=== PATIENT | male | born 1980 | race Caucasian/White ===

== ENCOUNTER 2018-09-15 15:33 | Emergency (ER) | payer SELFPAY ==
[2018-09-15] MEDS ORDERED: Benzocaine 20% Topical Spray UD MUCMEM ONE (16:39)
[2018-09-15] MEDS ORDERED: Acetaminophen/Codeine 300-30 MG Tab PO ONE (16:39)
[2018-09-15] MEDS ORDERED: Lidocaine 2% Viscous Solution 15 ML Cup PO ONE (16:39)
--- NOTE | 2018-09-15 16:43 | EDM.PDOC ---
ED HPI GENERAL MEDICAL PROBLEM - General Chief Complaint: ENT Problem Stated Complaint: TOOTH ACHE Time Seen by Provider: 09/15/18 16:33 - History of Present Illness INITIAL COMMENTS - FREE TEXT/NARRATIVE: HISTORY AND PHYSICAL: History of present illness: The patient is a 37-year-old male who presents with recurrent pain to the left side of his upper mouth where he has 2 problems from tooth 11 2 tooth 13. He has been seen here before for this same area and problem and has been referred to dentistry but he says he does not have the money and is here for evaluation. He says it flared up again and is swollen and that his gum was draining some pus last evening. He says he been using heat not ice to his face and seeking treatment for this. He has no other systemic complaints Review of systems: As per history of present illness and below otherwise all systems reviewed and negative. Past medical history: As per history of present illness and as reviewed below otherwise noncontributory. Surgical history: As per history of present illness and as reviewed below otherwise noncontributory. Social history: No reported history of drug or alcohol abuse. Family history: As per history of present illness and as reviewed below otherwise noncontributory. Physical exam: HEENT: Atraumatic, normocephalic, pupils reactive, negative for conjunctival pallor or scleral icterus, mucous membranes moist, throat clear, neck supple, nontender, trachea midline. There is no cervical adenopathy or nuchal rigidity and no facial swelling. There are multiple areas of dental disease and decay seen throughout the mouth most noteworthy is the left upper mouth with multiple dental caries and gum swelling starting at 211 and extending to tooth 14, there is some swelling of the gumline but no gross fluctuance. Lungs: Clear to auscultation, breath sounds equal bilaterally, chest nontender. Heart: S1S2, regular rate and rhythm no overt murmurs Abdomen: Soft, nondistended, nontender. NABS. Pelvis: Deferred Genitourinary: Deferred. Rectal: Deferred. Extremities: Atraumatic, full range of motion without any swelling. Neurovascular unremarkable. Neuro: Awake, alert, oriented. Cranial nerves II through XII unremarkable. Cerebellum unremarkable. Motor and sensory unremarkable throughout. Exam nonfocal. Diagnostics: [] Therapeutics: Dental balls Tylenol with codeine Impression: Dental infection, pain and dental caries Definitive disposition and diagnosis as appropriate pending reevaluation and review of above. - Related Data Allergies Allergy/AdvReac Type Severity Reaction Status Date / Time No Known Allergies Allergy Verified 05/10/18 20:00 Home Meds: Home Meds . [No Known Home Meds] 07/31/14 [History] Past Medical History - Past Health History Medical/Surgical History: Denies Medical/Surgical History HEENT History: Reports: Allergic Rhinitis - Infectious Disease History Infectious Disease History: Reports: None Social & Family History - Family History Family Medical History: Noncontributory - Caffeine Use Caffeine Use: Reports: Coffee, Energy Drinks, Soda ED ROS GENERAL - Review of Systems Review Of Systems: ROS reveals no pertinent complaints other than HPI. ED EXAM, GENERAL - Physical Exam Exam: See Below (See dictation) Course - Orders/Labs/Meds Meds: Medications Discontinued Medications Generic Name Dose Route Start Last Admin Trade Name Freq PRN Reason Stop Dose Admin Acetaminophen/Codeine Phosphate 2 tab 09/15/18 16:39 Tylenol With Codeine No.3 300mg/30mg PO 09/15/18 16:40 ONETIME ONE Benzocaine 2 each 09/15/18 16:39 Hurricaine One 20% MUCMEM 09/15/18 16:40 ONETIME ONE Lidocaine HCl 15 ml 09/15/18 16:39 Xylocaine 2% Viscous PO 09/15/18 16:40 ONETIME ONE Departure - Departure Time of Disposition: 16:42 Disposition: Home, Self-Care 01 Condition: Good Clinical Impression: Dental infection, Pain due to dental caries - Discharge Information Referrals: PCP,None [Primary Care Provider] - Additional Instructions: The following information is given to patients seen in the emergency department who are being discharged to home. This information is to outline your options for follow-up care. We provide all patients seen in our emergency department with a follow-up referral. The need for follow-up, as well as the timing and circumstances, are variable depending upon the specifics of your emergency department visit. If you don't have a primary care physician on staff, we will provide you with a referral. We always advise you to contact your personal physician following an emergency department visit to inform them of the circumstance of the visit and for follow-up with them and/or the need for any referrals to a consulting specialist. The emergency department will also refer you to a specialist when appropriate. This referral assures that you have the opportunity for followup care with a specialist. All of these measure are taken in an effort to provide you with optimal care, which includes your followup. Under all circumstances we always encourage you to contact your private physician who remains a resource for coordinating your care. When calling for followup care, please make the office aware that this follow-up is from your recent emergency room visit. If for any reason you are refused follow-up, please contact the [facility] emergency department at and ask to speak to the emergency department charge nurse. [facility] [place] [address] Instrument with water not peroxide after each male to try to cleanse the area. Use ice to face for swelling and take antibiotics as directed until finished. Use the dental balls you have been given today as shown for pain management as well as [id number] Tylenol and ibuprofen. Please contact a local dentist for definitive care and treatment as we discussed and return to ER as needed and as discussed
[2018-09-15 16:48] VITALS: BP 138/87
== END 2018-09-15 17:10 | disposition home or self-care (01) ==
LOC: MW.ED 15:33
DX: K02.9 Dental caries, unspecified (principal); K04.7 Periapical abscess without sinus
CPT/HCPCS: 99282; A9270

== ENCOUNTER 2022-05-07 03:48 | Emergency (ER) | payer SELFPAY ==
[2022-05-07 04:32] VITALS: BP 136/87; PULSE 85
== END 2022-05-07 04:38 | disposition home or self-care (01) ==
LOC: MW.ED 03:48
DX: H60.92 Unspecified otitis externa, left ear (principal)
CPT/HCPCS: 99282